=== PATIENT | female | born 1990 | race Caucasian/White ===

== ENCOUNTER 2017-03-18 21:35 | Emergency (ER) | payer OTHER ==
[~2017-03-18] VITALS: Ht 156.2 cm; Wt 88.5 kg
--- NOTE | ~2017-03-18 | EKG ---
PATIENT: GIOVANNY KIM UNIT #: [id number] Ventricular Rate: 96 BPM Atrial Rate: 96 BPM P-R Interval: 130 ms QRS Duration: 76 ms Q-T Interval: 346 ms QTC Calculation(Bezet): 437 ms P [place]: 44 degrees Calculated R [place]: 14 degrees Calculated T [place]: 38 degrees Diagnosis Line: Normal sinus rhythm Diagnosis Line: Possible Left atrial enlargement Diagnosis Line: Borderline ECG Diagnosis Line: No previous ECGs available Diagnosis Line: Confirmed by FLORI GREENE MD ([id number]) on Diagnosis Line: 03/22/2017 11:17:41 AM INTERPRETING MD: JC VASQUEZ
--- NOTE | ~2017-03-18 | CT71 ---
[facility] A Service [facility] RADIOLOGY TEXT RESULTS PATIENT: GIOVANNY KIM LOCATION: SED : 88 UNIT #: [id number] AGE: [address]: London Cr SEX: F ORDER DR: [id number] [place] [id number] E MR#: [id number] Acc #: [id number] NAME: GIOVANNY KIM. : 1990 SEX: F STUDY DATE/TIME: 03/18/2017 23:32 UNIT: SED ROOM: STUDY DESCRIPTION: CT Head Wo Contrast Attending Physician: London Cr P.A.-C. Ordering Physician: London Cr P.A.-C. Primary Care Physician: Primary Care Physician No MEDICAL IMAGING REPORT This report is preliminary unless electronic signature is present. EXAM CT head, noncontrast, 03/18/2017 HISTORY 27-year-old female in the ED complaining of new onset dizziness beginning just prior to arrival. TECHNIQUE CT examination of the head without IV contrast. This CT exam was performed with one or more of the following radiation dose reduction techniques: automatic exposure control, adjustment of mA and/or kV according to patient size, and iterative reconstruction. FINDINGS The examination is negative. No evidence of intracranial hemorrhage, mass, mass effect, cerebral edema, hydrocephalus or additional abnormality. IMPRESSION Negative head CT examination. Dictated by... Ha Baird M.D. THIS IS AN ELECTRONICALLY VERIFIED REPORT Ha Baird M.D. at 03/20/2017 6:02 AM MIGDALIA/gloria TD: 03/20/2017 00:17 JOB #: [id number] [facility] A Service [facility] RADIOLOGY TEXT RESULTS PATIENT: GIOVANNY KIM LOCATION: SED : 89 UNIT #: [id number] AGE: [address]: London Cr PAC SEX: F ORDER DR: MEDICAL IMAGING REPORT Page 1 of 1
[~2017-03-18 21:35] MED LIST: ALBUTEROL17 G1 IH; AMOXICILLIN875 MG PO; BACTRIM DS TABL1 TA1 PO; CODEINE PO; DICLOFENAC PO; IBUPROFEN PO; NO MEDICATIONS; PERCOCET5/325 PO; PROMETHAZINE PO; ROBITUSSIN PO; ZITHROMAX; ZITHROMAX PO
[2017-03-18 22:45] LABS: URINE SOURCE CLEAN CATCH
[2017-03-18 22:48] LABS: URINE APPEARANCE CLEAR; URINE BILIRUBIN NEG (NEG); URINE BLOOD NEG (NEG); URINE COLOR YELLOW; URINE GLUCOSE NEG (NORM); URINE KETONE NEG (NEG); URINE LEUKOCYTE ESTERASE NEG (NEG); URINE NITRATE NEG (NEG); URINE PROTEIN NEG (NEG); URINE SPECIFIC GRAVITY >=1.030 (1.003-1.035)
[2017-03-18 22:53] LABS: MICRO INDICATED? NO
[2017-03-18 23:27] LABS: BASOPHIL# 0.1 X10e3 (0-0.3); BASOPHIL% 0.8 % (0-2.5); EOSINOPHIL# 0.5 X10e3 (0-0.7); EOSINOPHIL% 4.2 % (0.0-7.0); HEMATOCRIT 42.1 % (35.0-45.0); HEMOGLOBIN 14.5 gm/dL (12.0-16.0); LYMPHOCYTE# 2.9 X10e3 (1.0-3.5); LYMPHOCYTE% 24.5 % (17.0-45.0); MEAN CORPUSCULAR HEMOGLOBIN 30.4 PG (28-34); MEAN CORPUSCULAR HGB CONC 34.5 g/dL (30-36); MEAN PLATELET VOLUME 7.7 FL (6.5-11.5); MONOCYTE# 1.1 X10e3 (0-1.0); MONOCYTE% 9.6 % (3.0-12.0); NEUTROPHIL# 7.2 X10e3 (1.5-7.1); NEUTROPHIL% 60.9 % (40-75); PLATELET COUNT 312 X10e3 (140-420); RED BLOOD COUNT 4.78 X10e (3.90-5.30); RED CELL DISTRIBUTION WIDTH 13.6 % (11.0-15.5); WHITE BLOOD COUNT 11.8 X10e3 (4.0-10.5)
[2017-03-18 23:31] LABS: DIFF IND NO
[2017-03-18 23:35] LABS: POC - CKMB 1.1 ng/mL (0.0-7.9); POC - MYOGLOBIN 59.6 ng/mL (0.0-169.0); POC - TROPONIN <0.05 ng/mL (<=0.05)
[2017-03-18 23:43] LABS: ALBUMIN SERUM 4.5 g/dL (3.5-5.0); BILIRUBIN, DIRECT 0.1 mg/dL (0.0-0.2); BILIRUBIN,INDIRECT 0.7 mg/dL (0.0-0.9); BILIRUBIN,TOTAL 0.8 mg/dL (0.2-2.0); CALCIUM SERUM 9.1 mg/dL (8.4-10.2); CREATININE SERUM 0.6 mg/dL (0.6-1.4); POTASSIUM 3.8 mmol/L (3.5-5.1); PROTEIN TOTAL SERUM 7.6 g/dL (6.0-8.3)
== END 2017-03-19 00:48 | disposition home or self-care (01) ==
LOC: SED 21:35
PROVIDERS: Physician Assistant
DX: R42 Dizziness and giddiness (principal); F17.200 Nicotine dependence, unspecified, uncomplicated
CPT/HCPCS: 36415; 70450; 80048; 80076; 81003; 82553; 82947; 83874; 84484; 84703; 85025; 93005; 99284